=== PATIENT | female | born 1960 | race Caucasian/White ===

== ENCOUNTER 2018-09-13 15:00 | Inpatient (IN) | payer MEDICAID ==
[2018-09-13 16:00] VITALS: BP 142/73
[2018-09-13 17:30] VITALS: BP 136/76
[2018-09-13] MEDS: LORazepam 2 MG TABLET PO PRN (17:57)
[2018-09-13] MEDS ORDERED: PNEUMOCOCCAL VACCINE POLYVALENT 0.5 ML VIAL [PPSV23] IM ONE (18:00)
[2018-09-13] MEDS ORDERED: LOPERAMIDE HCL 2 MG CAPSULE PO PRN (20:15)
[2018-09-13] MEDS ORDERED: GuaiFENesin/D-METHORPHAN [SUGAR-FREE] 200-20MG/10 ML SYRUP UDCUP PO PRN (20:15)
[2018-09-13] MEDS ORDERED: ONDANSETRON HCL 4 MG TABLET PO PRN (20:15)
[2018-09-13] MEDS ORDERED: PETROLATUM,WHITE 28 GM JELLY TP PRN (20:15)
[2018-09-13] MEDS ORDERED: MAG HYDROX/AL HYDROX/SIMETH ES 30 ML SUSPENSION UDCUP PO PRN (20:15)
[2018-09-13] MEDS ORDERED: MAGNESIUM HYDROXIDE SUSPENSION 30 ML UDCUP PO PRN (20:15)
[2018-09-13] MEDS ORDERED: CloNIDine HCL 0.1 MG TABLET PO PRN (20:15)
[2018-09-13] MEDS ORDERED: DOCUSATE SODIUM 100 MG CAPSULE PO PRN (20:15)
[2018-09-13 21:00] VITALS: BP 110/76
[2018-09-13] MEDS: ZOLPIDEM TARTRATE 10 MG TABLET PO PRN (21:10)
[2018-09-13 21:11] VITALS: BP 125/80
[2018-09-13] MEDS: IBUPROFEN 400 MG TABLET PO PRN (21:11)
[2018-09-13] MEDS: NICOTINE 14 MG/24 HOUR PATCH TD PRN (21:15)
[2018-09-14] VITALS (7 sets, daily range): BP systolic 121–140; BP diastolic 68–81
[2018-09-14] MEDS: ALBUTEROL SULFATE HFA 90 MCG/PUFF 8 GM INHALER IH PRN ×3 (00:52→16:50)
[2018-09-14] MEDS: ACETAMINOPHEN 325 MG TABLET PO PRN ×3 (00:52→20:31)
[2018-09-14] MEDS: LORazepam 2 MG TABLET PO PRN ×4 (00:52→19:37)
[2018-09-14] MEDS: TraMADol HCL 50 MG TABLET PO PRN ×2 (04:25→18:00)
[2018-09-14] MEDS: IBUPROFEN 400 MG TABLET PO PRN ×2 (05:25→19:37)
[2018-09-14 08:13] LABS: BASOPHILS % (AUTO) 0.8 % (0.0-2.0); EOSINOPHILS % (AUTO) 1.7 % (1.0-6.0); HEMATOCRIT 35.7 % (36-46); HEMOGLOBIN 12.3 g/dL (12.0-16.0); LYMPHOCYTES # (AUTO) 2.3 K/uL (1.0-4.8); LYMPHOCYTES % (AUTO) 41.7 % (22.0-44.0); MEAN CORPUSCULAR HEMOGLOBIN 32.8 pg (26.0-34.0); MEAN CORPUSCULAR HGB CONC 34.4 G/dL (31.0-37.0); MEAN CORPUSCULAR VOLUME 95 fL (80-100); MONOCYTES # (AUTO) 0.6 K/uL (0.1-1.0); MONOCYTES % (AUTO) 10.9 % (2.0-9.0); NEUTROPHILS # (AUTO) 2.4 K/uL (1.8-7.7); NEUTROPHILS % (AUTO) 44.9 % (40.0-70.0); PLATELET COUNT (AUTO) 212 K/uL (150-450); RED BLOOD CELL COUNT(AUTO) 3.74 MIL/uL (4.00-5.20); RED CELL DISTRIBUTION WIDTH 13.2 % (11.5-14.5)
[2018-09-14 08:33] LABS: APPEARANCE,URINE CLEAR (CLEAR); BILIRUBIN,URINE NEGATIVE (NEGATIVE); GLUCOSE, URINE (UA) NEGATIVE (NEGATIVE); KETONES,URINE NEGATIVE (NEGATIVE); LEUKOCYTE ESTERASE ,URINE NEGATIVE (NEGATIVE); NITRATE,URINE NEGATIVE (NEGATIVE); OCCULT BLOOD,URINE SMALL (NEGATIVE); PROTEIN,URINE TRACE (NEGATIVE); UROBILINOGEN,URINE 0.2 mg/dL (<=1.0)
[2018-09-14 08:34] LABS: HEMOGLOBIN A1C 4.9 % (4.5-6.2)
[2018-09-14] MEDS: HALOPERIDOL 5 MG TABLET PO PRN (08:34)
[2018-09-14 08:39] LABS: AMPHET/METH SCREEN,URINE NEGATIVE (NEGATIVE); BARBITURATE SCREEN, URINE NEGATIVE (NEGATIVE); BENZODIAZEPINES SCREEN,URINE NEGATIVE (NEGATIVE); CANNABINOID SCREEN,URINE NEGATIVE (NEGATIVE); COCAINE SCREEN,URINE NEGATIVE (NEGATIVE); METHADONE SCREEN, URINE NEGATIVE (NEGATIVE); OPIATE SCREEN,URINE POSITIVE (NEGATIVE)
[2018-09-14 08:40] LABS: PHENCYCLIDINE SCREEN,URINE NEGATIVE (NEGATIVE)
[2018-09-14 09:08] LABS: ALANINE AMINOTRANSFERASE 18 U/L (12-78); ALBUMIN 2.9 g/dL (3.4-5.0); ALKALINE PHOSPHATASE 55 U/L (46-116); ANION GAP 6 mmol/L (8-16); ASPARTATE AMINOTRANSFERASE 17 U/L (15-37); BILIRUBIN,TOTAL 0.5 mg/dL (0.1-1.0); CALCIUM, TOTAL 8.5 mg/dL (8.8-10.5); CARBON DIOXIDE 29 mmol/L (22-29); CHLORIDE 103 mmol/L (98-107); CHOL/HDL RATIO 2.2 (3.9-5.7); CHOLESTEROL 166 mg/dL (131-200); CREATININE 0.57 mg/dL (0.60-1.30); FREE T4 (FREE THYROXINE) 0.89 ng/dL (0.76-1.46); GLOMERULAR FILTR. RATE CALC > 60 mL/min (>60); GLUCOSE,RANDOM 81 mg/dL (70-110); HDL CHOLESTEROL 75 mg/dL (40-60); LDL CHOL (CALC.) 70 mg/dL (0-130); POTASSIUM 3.9 mmol/L (3.5-5.1); SODIUM SERUM 138 mmol/L (136-145); THYROID STIMULATING HORMONE 1.04 uIU/mL (0.36-3.74); TOTAL PROTEIN, SERUM 5.5 g/dL (6.4-8.2); TRIGLYCERIDES 105 mg/dL (15-150)
[2018-09-14 09:27] LABS: UREA NITROGEN, BLOOD 8 mg/dL (7-18)
[2018-09-14] MEDS: METOPROLOL TARTRATE 50 MG TABLET PO SCH (10:30)
[2018-09-14 10:45] LABS: BACTERIA,URINE None Seen /HPF (None Seen); SQUAMOUS EPITHELIAL CELL,UR Few /LPF (None Seen); WBC,URINE None Seen /HPF (0-5)
[2018-09-14] MEDS: FLUoxetine HCL 20 MG CAPSULE PO SCH ×2 (12:15→13:09)
[2018-09-14] MEDS: OxyCODONE HCL/ACETAMINOPHEN 5-325 MG TABLET PO PRN ×2 (16:01→23:48)
[2018-09-14] MEDS: ASPIRIN 81 MG EC TABLET PO SCH (17:14)
[2018-09-14] MEDS: DICLOFENAC SODIUM 1% 100 GM GEL [2GM] TP PRN (20:49)
[2018-09-14] MEDS: QUEtiapine FUMARATE 100 MG TABLET PO SCH (20:50)
[2018-09-14] MEDS: ZOLPIDEM TARTRATE 10 MG TABLET PO PRN (20:50)
[2018-09-14] MEDS: CYCLOBENZAPRINE HCL 10 MG TABLET PO SCH (20:50)
[2018-09-14] MEDS: NICOTINE 14 MG/24 HOUR PATCH TD PRN (21:13)
[2018-09-15] MEDS: TraMADol HCL 50 MG TABLET PO PRN ×3 (02:03→19:46)
[2018-09-15] MEDS: IBUPROFEN 400 MG TABLET PO PRN ×2 (04:24→14:17)
[2018-09-15] MEDS: LORazepam 2 MG TABLET PO PRN ×4 (04:24→19:46)
[2018-09-15] MEDS: ALBUTEROL SULFATE HFA 90 MCG/PUFF 8 GM INHALER IH PRN ×2 (04:39→13:34)
[2018-09-15] MEDS: ALBUTEROL SULFATE 2.5 MG/0.5 ML NEB SOLUTION NEB PRN ×2 (04:40→18:51)
[2018-09-15 08:04] VITALS: BP 137/72
[2018-09-15] MEDS: OxyCODONE HCL/ACETAMINOPHEN 5-325 MG TABLET PO PRN ×2 (08:04→17:53)
[2018-09-15] MEDS: ACETAMINOPHEN 325 MG TABLET PO PRN ×2 (08:05→18:52)
[2018-09-15] MEDS: FLUoxetine HCL 20 MG CAPSULE PO SCH (08:19)
[2018-09-15] MEDS: METOPROLOL TARTRATE 50 MG TABLET PO SCH (08:19)
[2018-09-15] MEDS: ASPIRIN 81 MG EC TABLET PO SCH (08:20)
[2018-09-15 10:27] VITALS: BP 130/80
[2018-09-15] MEDS: HALOPERIDOL 5 MG TABLET PO PRN ×2 (12:04→22:05)
[2018-09-15] MEDS: NICOTINE 14 MG/24 HOUR PATCH TD PRN (14:12)
[2018-09-15 14:17] VITALS: BP 129/76
[2018-09-15 17:53] VITALS: BP 160/77
[2018-09-15 19:44] VITALS: BP 130/68
[2018-09-15] MEDS: CYCLOBENZAPRINE HCL 10 MG TABLET PO SCH (21:13)
[2018-09-15] MEDS: QUEtiapine FUMARATE 100 MG TABLET PO SCH (21:13)
[2018-09-15] MEDS: DICLOFENAC SODIUM 1% 100 GM GEL [2GM] TP PRN (21:20)
[2018-09-15] MEDS: ZOLPIDEM TARTRATE 10 MG TABLET PO PRN (22:05)
[2018-09-15 22:07] VITALS: BP 117/63
[2018-09-16 02:17] VITALS: BP 138/89
[2018-09-16] MEDS: OxyCODONE HCL/ACETAMINOPHEN 5-325 MG TABLET PO PRN ×2 (02:20→09:29)
[2018-09-16] MEDS: HALOPERIDOL 5 MG TABLET PO PRN (02:37)
[2018-09-16 06:50] VITALS: BP 129/81
[2018-09-16] MEDS: TraMADol HCL 50 MG TABLET PO PRN (06:55)
[2018-09-16] MEDS: LORazepam 2 MG TABLET PO PRN (06:55)
[2018-09-16] MEDS: ALBUTEROL SULFATE HFA 90 MCG/PUFF 8 GM INHALER IH PRN (06:56)
[2018-09-16] MEDS: METOPROLOL TARTRATE 50 MG TABLET PO SCH (09:22)
[2018-09-16] MEDS: FLUoxetine HCL 20 MG CAPSULE PO SCH (09:23)
[2018-09-16] MEDS: ASPIRIN 81 MG EC TABLET PO SCH (09:23)
[2018-09-16 09:29] VITALS: BP 153/89
[2018-09-16 10:29] VITALS: BP 138/87
== END 2018-09-16 13:40 | disposition left against medical advice (07) | DRG 751 ==
LOC: B2X 16:39
PROVIDERS: ADMIT Psychiatry & Neurology Psychiatry; ATTEND Psychiatry & Neurology Psychiatry
DX: F33.2 Major depressive disorder, recurrent severe without psychotic features (principal); R45.851 Suicidal ideations; F10.10 Alcohol abuse, uncomplicated; G89.29 Other chronic pain; I10 Essential (primary) hypertension; J44.9 Chronic obstructive pulmonary disease, unspecified; M54.9 Dorsalgia, unspecified; K59.00 Constipation, unspecified; M79.7 Fibromyalgia; Z76.5 Malingerer [conscious simulation]
CPT/HCPCS: 80307; 83036; 84439; 84443; J3535; Q0162